=== PATIENT | male | born 1985 | race Caucasian/White ===

== ENCOUNTER 2020-12-03 04:04 | Emergency (ER) | payer OTHER ==
[~2020-12-03 04:04] MED LIST: ACETAMINOPHEN325 MG PO; BACLOFEN 10MG T10 MG PO; LOVENOX40 MG/0.4 SQ; MIRALAX17 GM PO; NAPROXEN500 MG PO; NORCO 5-325 TA1 EACH PO; OS-CAL500 MG PO; SENNA PLUS TAB1 EACH PO
[2020-12-03] MEDS ORDERED: MEDROL 4MG DOSEP4 MG PO (04:57)
[2020-12-03] MEDS ORDERED: NEURONTIN300 M1 PO (04:57)
== END 2020-12-03 05:32 | disposition home or self-care (01) ==
LOC: FER 04:04
DX: M54.12 Radiculopathy, cervical region (principal); Z87.09 Personal history of other diseases of the respiratory system; Z79.899 Other long term (current) drug therapy
CPT/HCPCS: 99283

== ENCOUNTER 2021-04-18 20:39 | Emergency (ER) | payer OTHER ==
[~2021-04-18 20:39] MED LIST changes: +MEDROL 4MG DOSEP4 MG PO; +NEURONTIN300 M1 PO
[2021-04-18] MEDS ORDERED: BACTRIM DS TAB1 EACH PO (21:36)
== END 2021-04-18 21:48 | disposition home or self-care (01) ==
LOC: FER 20:39
DX: L05.01 Pilonidal cyst with abscess (principal); J45.909 Unspecified asthma, uncomplicated
CPT/HCPCS: 99283

== ENCOUNTER 2021-04-23 01:39 | Emergency (ER) | payer OTHER ==
[~2021-04-23 01:39] MED LIST changes: +BACTRIM DS TAB1 EACH PO
[2021-04-23 02:21] LABS: BASOPHIL 0.7 % (0-2); EOSINOPHIL 0.6 % (0-5); HCT 40.3 % (42.0-52.0); HGB 13.7 g/dl (13.2-18.0); LYMPHOCYTE 14.9 % (15-48); MCV 88.4 fL (78.0-100.0); MONOCYTE 15.5 % (0-12); MPV 8.9 fL (6.0-9.5); NEUTROPHIL 67.8 % (41-80); NRBC 0; PLT 259 K/uL (150-400); RBC 4.56 M/uL (4.70-6.00); RDW 12.2 % (11.5-14.0); WBC 8.4 K/uL (4.0-10.5)
[2021-04-23] MEDS ORDERED: PREDNISONE 20MG20 MG PO (02:30)
[2021-04-23] MEDS ORDERED: AZITHROMYCIN250 MG PO (02:30)
[2021-04-23] MEDS ORDERED: ONDANSETRON ODT4 MG PO (02:30)
[2021-04-23 02:43] LABS: BUN/CREAT RATIO (CALC) 12.9 RATIO; CREATININE 0.93 mg/dL (0.67-1.17); POTASSIUM 4.4 mmol/L (3.5-5.1)
[2021-04-23 02:57] LABS: INFLUENZA A NAA NEGATIVE (NEGATIVE)
[2021-04-23 02:59] LABS: CORONAVIRUS 2019 SARS-COV-2 POSITIVE (NEGATIVE)
== END 2021-04-23 03:30 | disposition home or self-care (01) ==
LOC: FER 01:39
PROVIDERS: Internal Medicine
DX: U07.1 COVID-19 (principal); J45.909 Unspecified asthma, uncomplicated; Z79.899 Other long term (current) drug therapy
CPT/HCPCS: 36415; 71045; 80048; 84145; 84484; 85025; 93005; 94640; 96372; J1100; J2405; U0002

== ENCOUNTER → 2021-06-04 | Day surgery (SDC) | payer OTHER ==
[~2021-06-04] VITALS: Ht 177.8 cm; Wt 111.1 kg
[~2021-06-04] MED LIST changes: +ACETAMINOPHEN500 M1 PO; +ALLERGY MED PO; +AZITHROMYCIN250 MG PO; +COLACE100 MG PO; +FLUTICASONE-SA1 EAC1 INH; +MOTRIN600 MG PO; +ONDANSETRON ODT4 MG PO; +OXY-IR 5MG5 MG PO; +PREDNISONE 20MG20 MG PO; +PROVENTIL HFA6.7 GM PO; +WELLBUTRIN75 MG PO
== END | disposition home or self-care (01) ==
LOC: FAS 06:59
DX: L72.0 Epidermal cyst (principal); E66.3 Overweight; I10 Essential (primary) hypertension; J45.909 Unspecified asthma, uncomplicated; Z86.16 Personal history of COVID-19
CPT/HCPCS: J0690; J1100; J1644; J2250; J2405; J2704; J2710; J3010; J7120

== ENCOUNTER 2021-11-24 16:19 | Emergency (ER) | payer OTHER ==
[2021-11-24 17:53] LABS: BASOPHIL 0.6 % (0-2); EOSINOPHIL 0.9 % (0-5); HCT 39.1 % (42.0-52.0); HGB 13.5 g/dl (13.2-18.0); MCH 30.5 pg (25.0-31.0); MCHC 34.5 g/dL (32.0-36.0); MCV 88.5 fL (78.0-100.0); MONOCYTE 9.3 % (0-12); NEUTROPHIL 60.7 % (41-80); NRBC 0; PLT 288 K/uL (150-400); RBC 4.42 M/uL (4.70-6.00); RDW 12.1 % (11.5-14.0); WBC 9.8 K/uL (4.0-10.5)
[2021-11-24 18:08] LABS: BUN/CREAT RATIO (CALC) 15.3 RATIO; CREATININE 0.85 mg/dL (0.67-1.17); POTASSIUM 3.9 mmol/L (3.5-5.1)
[2021-11-24 18:39] LABS: BILIRUBIN NEGATIVE (NEGATIVE); BLOOD NEGATIVE Ery/uL (NEGATIVE); CLARITY CLEAR (CLEAR); COLOR YELLOW (YELLOW); GLUCOSE (U) NORMAL (NORMAL); LEUKOCYTES NEGATIVE Leu/uL (NEGATIVE); NITRITE NEGATIVE (NEGATIVE); PROTEIN NEGATIVE (NEGATIVE); UROBILINOGEN 0.2 mg/dL (0.2-1.0)
== END 2021-11-24 20:19 | disposition home or self-care (01) ==
LOC: FER 16:19
PROVIDERS: Nurse Practitioner Family
DX: R10.11 Right upper quadrant pain (principal)
CPT/HCPCS: 36415; 80048; 81003; 85025; J7030; Q9967